=== PATIENT | female | born 1995 | race Caucasian/White ===

== ENCOUNTER 2020-09-05 20:13 | Inpatient (IN) ==
[2020-09-05 20:48] LABS: Amorphous Crystals,Urine Occasional /HPF (Few); Bilirubin,Urine Negative (Negative); Blood, Urine Negative (Negative); Glucose,Urine (UA) Negative (Negative); Ketones,Urine Negative (Negative); Mucus,Urine Occasional /LPF (Occasional); Nitrite,Urine Negative (Negative); Protein,Urine Negative; Squamous Epithelial Cell,Urine Occasional /HPF (0-10); Urine Appearance CLEAR (Clear); Urine Color Yellow (Yellow); Urine Specific Gravity 1.012 (1.001-1.035); Urine Urobilinogen < 2.0 EU/DL (0.2-1.0)
[2020-09-05] MEDS ORDERED: MEPERIDINE 50 MG/1 ML VIAL IV PRN (21:04)
[2020-09-05] MEDS ORDERED: ONDANSETRON 4 MG/2 ML VIAL IV PRN (21:04)
[2020-09-05] MEDS ORDERED: BUTORPHANOL 2 MG/ML VIAL IV PRN (21:04)
[2020-09-05 21:26] LABS: Basophils % 0.1 % (0.0-0.8); Eosinophils # 0.1 10*3/uL (0.0-0.87); Eosinophils % 0.8 % (0.00-10.9); Hematocrit 41.6 VOL% (35.7-47.0); Hemoglobin 13.9 GM/DL (12.0-16.0); Immature Granulocytes % 0.5 %; Immature Granulocytes Absolute 0.04 #; Lymphocytes # 1.8 10*3/uL (1.4-4.0); Lymphocytes % 20.9 % (21.3-54.2); Mean Corpuscular HGB Conc 33.4 GM/DL (32-36); Mean Corpuscular Volume 92.4 FL (87-102); Mean Platelet Volume 9.8 FL (9.6-12.0); Monocytes % 6.3 % (1.7-12.7); Neutrophils % 71.4 % (38.7-73.9); Platelet Count 207 T/CUMM (130-400); Red Cell Distribution Width 12.2 % (9.3-17.3); White Blood Count 8.6 T/CUMM (4-12)
[2020-09-05 21:49] LABS: Alanine Aminotransferase 24 U/L (13-56); Albumin 2.6 G/DL (3.4-5.0); Alkaline Phosphatase 98 U/L (45-117); Aspartate Amino Transferase 21 U/L (0-37); Bilirubin,Total < 0.39 MG/DL (0.2-1.0); Blood Urea Nitrogen 9 MG/DL (7-18); Calcium 8.6 MG/DL (8.5-10.1); Carbon Dioxide 23 MMOL/L (21-32); Estimated Glom Filtration Rate 120 ML/MIN; Glucose 89 MG/DL (74-106); Osmolality,Calculated 274.5 MOS/KG (273-304); Sodium 139 MMOL/L (136-145); Total Protein 6.9 G/DL (6.4-8.2)
[2020-09-05] MEDS ORDERED: PROMETHAZINE 25 MG/1 ML VIAL IM ONE (22:32)
[2020-09-05] MEDS ORDERED: ePHEDrine 50 MG/ML VIAL IV PRN (22:32)
[2020-09-05] MEDS ORDERED: CITRIC ACID/SODIUM CITRATE 30 ML UDCUP PO ONE (22:32)
[2020-09-05] MEDS ORDERED: diphenhydrAMINE 50 MG/1 ML VIAL IV PRN ×2 (22:32)
[2020-09-05] MEDS ORDERED: FAMOTIDINE 20 MG/2 ML VIAL IV ONE ×2 (22:32→22:33)
[2020-09-05] MEDS ORDERED: NALOXONE 0.4 MG/ML VIAL IV PRN (22:32)
[2020-09-05] MEDS ORDERED: hydrOXYzine HCL 25 MG/1 ML VIAL IM PRN (22:32)
[2020-09-05] MEDS: LACTATED RINGERS 1,000 ML IV SCH (22:48)
[2020-09-05] MEDS: fentaNYL 2 MCG/ROPIV 0.2% EPID 100 ML EPIDURAL SCH (22:55)
[2020-09-06] MEDS: LACTATED RINGERS 1,000 ML IV SCH (03:08)
[2020-09-06] MEDS: fentaNYL 2 MCG/ROPIV 0.2% EPID 100 ML EPIDURAL SCH ×2 (07:36→14:33)
[2020-09-06] MEDS: OXYTOCIN/LR 20 UNIT/1,000 ML BAG IV SCH ×2 (07:36→19:59)
[2020-09-06] MEDS ORDERED: ACETAMINOPHEN 500 MG TABLET PO PRN (09:37)
[2020-09-06] MEDS ORDERED: METHYLERGONOVINE 0.2 MG/1 ML AMP IM ONE ×2 (17:14→18:13)
[2020-09-06 17:22] LABS: Cord Venous Blood HCO3 21.6 MMOL/L; Cord Venous Blood PCO2 59.4 MMHG; Cord Venous Blood PO2 < 17
[2020-09-06] MEDS ORDERED: LIDOCAINE 1% 50 ML VIAL ONE (18:31)
[2020-09-06] MEDS ORDERED: BENZOCAINE 20%/MENTHOL 0.5% SPRAY 56 GM CAN TOP PRN (21:04)
[2020-09-06] MEDS: IBUPROFEN 800 MG TABLET PO PRN (21:05)
[2020-09-06] MEDS: oxyCODONE/ACETAMINOPHEN 5-325 MG TABLET PO PRN (22:10)
[2020-09-07] MEDS: IBUPROFEN 800 MG TABLET PO PRN ×2 (08:26→15:33)
[2020-09-07 10:54] LABS: Basophils % 0.2 % (0.0-0.8); Eosinophils # 0.1 10*3/uL (0.0-0.87); Eosinophils % 0.5 % (0.00-10.9); Hematocrit 34.4 VOL% (35.7-47.0); Immature Granulocytes % 0.5 %; Immature Granulocytes Absolute 0.06 #; Lymphocytes # 1.5 10*3/uL (1.4-4.0); Mean Corpuscular HGB Conc 33.7 GM/DL (32-36); Mean Corpuscular Volume 92.7 FL (87-102); Mean Platelet Volume 9.5 FL (9.6-12.0); Neutrophils % 81.8 % (38.7-73.9); Red Blood Count 3.71 MC/CUMM (3.8-5.5); Red Cell Distribution Width 12.3 % (9.3-17.3)
[2020-09-07 10:58] LABS: Hemoglobin 11.6 GM/DL (12.0-16.0); Platelet Count 152 T/CUMM (130-400); White Blood Count 12.5 T/CUMM (4-12)
[2020-09-07] MEDS: oxyCODONE/ACETAMINOPHEN 5-325 MG TABLET PO PRN ×2 (11:04→20:20)
[2020-09-07] MEDS: LACTATED RINGERS 1,000 ML IV SCH ×3 (13:40→13:41)
[2020-09-07] MEDS: OXYTOCIN/LR 20 UNIT/1,000 ML BAG IV SCH (13:42)
[2020-09-07] MEDS: DOCUSATE SODIUM 100 MG CAPSULE PO SCH (20:20)
[2020-09-07] MEDS ORDERED: IBUPROFEN 800 MG TABLET PO PRN (21:35)
[2020-09-08] MEDS: oxyCODONE/ACETAMINOPHEN 5-325 MG TABLET PO PRN ×2 (03:59→10:06)
[2020-09-08 08:24] VITALS: BP 108/75
[2020-09-08] MEDS: DOCUSATE SODIUM 100 MG CAPSULE PO SCH (08:51)
== END 2020-09-08 11:33 | disposition home or self-care (01) | DRG 807 ==
LOC: N.LDOUT 20:13 → N.LD 20:15 → N.OB 09-07 10:45
PROVIDERS: ADMIT Family Medicine; ATTEND Obstetrics & Gynecology